=== PATIENT | male | born 1995 | race Caucasian/White ===

== ENCOUNTER 2018-11-14 21:19 | Emergency (ER) | payer OTHER, SELFPAY ==
[2018-11-14 21:22] VITALS: BP 118/64; PULSE 98; RESP 16; TEMP 36.7; O2SAT 98
--- NOTE | 2018-11-14 21:33 | W.ED.GENAD ---
Discharge Plan Disposition Patient Disposition: HOME Condition: Stable Discharge Details Chief Complaint: Fever Clinical Impression: Influenza Primary Care Provider: Mariam Clark ED Provider: Carlos Araujo Home Meds and New Rx's Prescriptions: New ondansetron 4 mg tablet,disintegrating 4 mg PO TID PRN (Reason: nausea and vomiting) 5 Days Qty: 30 RF: 0 Continued penicillin V potassium 500 mg tablet 500 mg PO BID 10 Days Qty: 20 RF: 0 oseltamivir [Tamiflu] 75 mg capsule 75 mg PO BID 5 Days Qty: 10 RF: 0 Excedrin Migraine 1 EACH tablet 1 ea PO PRN RF: 0 prochlorperazine maleate 10 MG tablet 10 mg PO Q8H PRN Qty: 30 RF: 3 sumatriptan succinate [Imitrex] 100 MG tablet 100 mg PO PRN Qty: 10 RF: 0 acetaminophen [Tylenol] 325 MG tablet 650 mg PO Q4H PRN PRNRF: 0 ibuprofen 600 MG tablet 600 mg PO Q6H PRN (Reason: Pain) Qty: 16 RF: 0 Discharge Instructions Instructions: Influenza (ED) Additional Instructions: you can take 1000mg tylenol and 600mg ibuprofen every 6 hours as needed if you feel you are becoming more ill, have worsening difficulty breathing or persistent vomit return to the emergency department for reevaluation if not better in a week see your primary care provider Medical Decision Making 23 yo male who denies chronic medical problems comes in with fevers to 104 at home, chills, and sore throat starting yesterday. Was tested positive by pcp for strep throat yesterday and started pcn. Today had chills and rigors and myalgias so they also started him on tamiflu. Denies any drug use, no travel, no vomit but has had nausea. He appears well systemically, midline uvula, no pain over hyoid and no findings to suggest rpa, scow captain, epiglotitis. Clear lungs withut hypoxia or tachycardia so doubt pna at this time, do not feel additional labs or imaging indicated. I advised continued supportive care, continue pcn and tamilfu and return precautions given. No murmurs or other stigmata of endocarditis. No meningismus or severe hedache to suggest manager msw infection Differential Diagnosis influenza, strep throat HPI General Mode of arrival: ambulatory. Date/Time Provider Initiated Documentation: 11/14/18 21:33. Limitations to Documentation: no limitations. Information obtained by: patient. History of Present Illness 23 year old M presents to the emergency department with the chief complaint of fever, described as moderate, Patient started experiencing this day(s) (1) and it has been constant. No relieving factors improve symptom(s), No exacerbating factors reported . Patient did receive the following treatments prior to arrival, none Related Data Home Medications Medication Instructions Recorded Confirmed Excedrin Migraine 1 ea PO PRN 04/25/17 11/14/18 prochlorperazine maleate 10 mg PO Q8H PRN #30 tab-cap 04/25/17 11/14/18 sumatriptan succinate [Imitrex] 100 mg PO PRN #10 tab-cap 04/25/17 11/14/18 acetaminophen [Tylenol] 650 mg PO Q4H PRN PRN tab 04/29/17 11/14/18 ibuprofen 600 mg PO Q6H PRN #16 tab 12/26/17 11/14/18 penicillin V potassium 500 mg 500 mg PO BID 10 Days #20 tab 11/13/18 11/14/18 tablet ondansetron 4 mg PO TID PRN 5 Days #30 tab 11/14/18 oseltamivir 75 mg capsule 75 mg PO BID 5 Days #10 cap 11/14/18 11/14/18 Previous Rx's Medication Instructions Recorded acetaminophen [Tylenol] 650 mg PO Q4H PRN PRN tab 04/29/17 ibuprofen 600 mg PO Q6H PRN #16 tab 12/26/17 penicillin V potassium 500 mg 500 mg PO BID 10 Days #20 tab 11/13/18 tablet ondansetron 4 mg PO TID PRN 5 Days #30 tab 11/14/18 oseltamivir 75 mg capsule 75 mg PO BID 5 Days #10 cap 11/14/18 Allergies Allergy/AdvReac Type Severity Reaction Status Date / Time No Known Allergies Allergy Verified 11/14/18 21:29 General Stated Complaint: Fever TOMASA: 3 Review of Systems Review of Systems All systems reviewed & are unremarkable except as noted in HPI and below Constitutional Denies chills ENT Denies change in voice Cardiovascular Denies chest pain Gastrointestinal Denies abdominal pain, Denies nausea and Denies vomiting Genitourinary Denies dysuria Musculoskeletal Denies joint swelling Integumentary/Breasts Denies rash Endocrine Denies heat intolerance PFSH Medical History GERD (gastroesophageal reflux disease) Migraines Viral meningitis (04/27/17) Surgical History Hernia repair Family History Mother Migraines Father Migraines Sister No problems noted. Brother No problems noted. Grandfather Diabetes Neoplasm Grandfather Diabetes Social History Smoking and Tabacco status: Never Exam Const General: no acute distress Orientation: alert HENMT Head: normal to inspection Ears: external ears normal General nose exam: external nose normal Mouth: moist mucous membranes Eyes General: appearance normal, both eyes and all related structures Neck Neck: normal visual inspection Resp Effort & Inspection: normal respiratory effort and able to speak in complete sentences Cardio Rate: regular rate Skin General skin exam: no rashes or lesions noted Neuro General: alert and oriented x3 Extrem General: normal to inspection Psych Mental Status: mental status grossly normal Course Vital Signs Temperature 36.7 C 11/14/18 21:22 Pulse 98 H 11/14/18 21:22 Respiratory Rate 16 11/14/18 21:22 Blood Pressure 118/64 11/14/18 21:22 Pulse Oximetry 98 11/14/18 21:22 Temperature 36.7 C 11/14/18 21:22 Temperature Source Skin 11/14/18 21:22 Pulse 98 H 11/14/18 21:22 Respiratory Rate 16 11/14/18 21:22 Respiratory Effort Non-Labored 11/14/18 21:30 Blood Pressure 118/64 11/14/18 21:22 Blood Pressure Position Sitting 11/14/18 21:22 Pulse Oximetry 98 11/14/18 21:22 Oxygen Delivery Method Room Air 11/14/18 21:22 Oxygen Flow Rate 0 11/14/18 21:22
[2018-11-14 21:34] VITALS: TEMP 37.8
--- NOTE | 2018-11-14 21:44 | ED.GENADUL_ITS ---
Discharge Plan Disposition Patient Disposition: HOME Condition: Stable Discharge Details Chief Complaint: Fever Clinical Impression: Influenza Primary Care Provider: Mariam Clark ED Provider: Carlos Araujo Home Meds and New Rx's Prescriptions: New ondansetron 4 mg tablet,disintegrating 4 mg PO TID PRN (Reason: nausea and vomiting) 5 Days Qty: 30 RF: 0 Continued penicillin V potassium 500 mg tablet 500 mg PO BID 10 Days Qty: 20 RF: 0 oseltamivir [Tamiflu] 75 mg capsule 75 mg PO BID 5 Days Qty: 10 RF: 0 Excedrin Migraine 1 EACH tablet 1 ea PO PRN RF: 0 prochlorperazine maleate 10 MG tablet 10 mg PO Q8H PRN Qty: 30 RF: 3 sumatriptan succinate [Imitrex] 100 MG tablet 100 mg PO PRN Qty: 10 RF: 0 acetaminophen [Tylenol] 325 MG tablet 650 mg PO Q4H PRN PRNRF: 0 ibuprofen 600 MG tablet 600 mg PO Q6H PRN (Reason: Pain) Qty: 16 RF: 0 Discharge Instructions Instructions: Influenza (ED) Additional Instructions: you can take 1000mg tylenol and 600mg ibuprofen every 6 hours as needed if you feel you are becoming more ill, have worsening difficulty breathing or pe rsistent vomit return to the emergency department for reevaluation if not better in a week see your primary care provider Medical Decision Making 23 yo male who denies chronic medical problems comes in with fevers to 104 at home, chills, and sore throat starting yesterday. Was tested positive by pcp for strep throat yesterday and started pcn. Today had chills and rigors and myalgias so they also started him on tamiflu. Denies any drug use, no travel, no vomit but has had nausea. He appears well systemically, midline uvula, no pain over hyoid and no findings to suggest rpa, bell captain, epiglotitis. Clear lungs withut hypoxia or tachycardia so doubt pna at this time, do not feel additional labs or imaging indicated. I advised continued supportive care, continue pcn and tamilfu and return precautions given. No murmurs or other stigmata of endocarditis. No meningismus or severe hedache to suggest collar tacker infection Differential Diagnosis influenza, strep throat HPI General Mode of arrival: ambulatory . Date/Time Provider Initiated Documentation: 11/14/18 21:33 . Limitations to Documentation: no limitations . Information obtained by: patient . History of Present Illness 23 year old M presents to the emergency department with the chief complaint of fever, described as moderate, Patient started experiencing this day(s) (1) and it has been constant. No relieving factors improve symptom(s), No exacerbating factors reported . Patient did receive the following treatments prior to arrival, none Related Data Home Medications Medication Instructions Recorded Confirmed Excedrin Migraine 1 ea PO PRN 04/25/17 11/14/18 prochlorperazine maleate 10 mg PO Q8H PRN #30 tab-cap 04/25/17 11/14/18 sumatriptan succinate [Imitrex] 100 mg PO PRN #10 tab-cap 04/25/17 11/14/18 acetaminophen [Tylenol] 650 mg PO Q4H PRN PRN tab 04/29/17 11/14/18 ibuprofen 600 mg PO Q6H PRN #16 tab 12/26/17 11/14/18 penicillin V potassium 500 mg 500 mg PO BID 10 Days #20 tab 11/13/18 11/14/18 tablet ondansetron 4 mg PO TID PRN 5 Days #30 tab 11/14/18 oseltamivir 75 mg capsule 75 mg PO BID 5 Days #10 cap 11/14/18 11/14/18 Previous Rx's Medication Instructions Recorded acetaminophen [Tylenol] 650 mg PO Q4H PRN PRN tab 04/29/17 ibuprofen 600 mg PO Q6H PRN #16 tab 12/26/17 penicillin V potassium 500 mg 500 mg PO BID 10 Days #20 tab 11/13/18 tablet ondansetron 4 mg PO TID PRN 5 Days #30 tab 11/14/18 oseltamivir 75 mg capsule 75 mg PO BID 5 Days #10 cap 11/14/18 Allergies Allergy/AdvReac Type Severity Reaction Status Date / Time No Known Allergies Allergy Verified 11/14/18 21:29 General Stated Complaint: Fever TOMASA: 3 Review of Systems Review of Systems All systems reviewed & are unremarkable except as noted in HPI and below Constitutional Denies chills ENT Denies change in voice Cardiovascular Denies chest pain Gastrointestinal Denies abdominal pain, Denies nausea and Denies vomiting Genitourinary Denies dysuria Musculoskeletal Denies joint swelling Integumentary/Breasts Denies rash Endocrine Denies heat intolerance PFSH Medical History GERD (gastroesophageal reflux disease) Migraines Viral meningitis (04/27/17) Surgical History Hernia repair Family History Mother Migraines Father Migraines Sister No problems noted. Brother No problems noted. Grandfather Diabetes Neoplasm Grandfather Diabetes Social History Smoking and Tabacco status: Never Exam Const General: no acute distress Orientation: alert HENMT Head: normal to inspection Ears: external ears normal General nose exam: external nose normal Mouth: moist mucous membranes Eyes General: appearance normal, both eyes and all related structures Neck Neck: normal visual inspection Resp Effort & Inspection: normal respiratory effort and able to speak in complete sentences Cardio Rate: regular rate Skin General skin exam: no rashes or lesions noted Neuro General: alert and oriented x3 Extrem General: normal to inspection Psych Mental Status: mental status grossly normal Course Vital Signs Temperature 36.7 C 11/14/18 21:22 Pulse 98 H 11/14/18 21:22 Respiratory Rate 16 11/14/18 21:22 Blood Pressure 118/64 11/14/18 21:22 Pulse Oximetry 98 11/14/18 21:22 Temperature 36.7 C 11/14/18 21:22 Temperature Source Skin 11/14/18 21:22 Pulse 98 H 11/14/18 21:22 Respiratory Rate 16 11/14/18 21:22 Respiratory Effort Non-Labored 11/14/18 21:30 Blood Pressure 118/64 11/14/18 21:22 Blood Pressure Position Sitting 11/14/18 21:22 Pulse Oximetry 98 11/14/18 21:22 Oxygen Delivery Method Room Air 11/14/18 21:22 Oxygen Flow Rate 0 11/14/18 21:22
[2018-11-14] MEDS: Ondansetron O.D.T. 4 MG TABEF PO (21:52)
== END 2018-11-14 22:00 | disposition home or self-care (01) ==
PROVIDERS: Emergency Provider Emergency Medicine; PCP Nurse Practitioner Family
DX: J10.89 Influenza due to other identified influenza virus with other manifestations (principal); J02.0 Streptococcal pharyngitis
CPT/HCPCS: 99283

== ENCOUNTER 2020-01-29 10:52 | Outpatient (CLI) | payer OTHER, SELFPAY ==
[2020-01-30 15:24] LABS: COVID-19 RT-PCR Result NEGATIVE (Negative)
== END 2020-01-29 11:12 ==
PROVIDERS: PCP Nurse Practitioner Family; Visit Provider Family Medicine
DX: R50.9 Fever, unspecified (principal)
CPT/HCPCS: U0003

== ENCOUNTER 2020-07-07 11:48 | Outpatient (CLI) | payer OTHER, SELFPAY ==
[2020-07-09 16:20] LABS: Patient Race White; SARS-CoV-2 RNA Undetected (Undetected); SARS-CoV-2 Specimen Source Nasal
== END 2020-07-07 12:08 ==
PROVIDERS: PCP Nurse Practitioner Family; Visit Provider Nurse Practitioner Family
DX: Z11.59 Encounter for screening for other viral diseases (principal)
CPT/HCPCS: U0003

== ENCOUNTER 2020-11-28 02:39 | Outpatient (CLI) | payer SELFPAY ==
[2020-11-29 14:22] LABS: COVID-19 RT-PCR UVMMC Result Negative (Negative)
== END 2020-11-28 02:40 | disposition home or self-care (01) ==
LOC: LBO 02:39
PROVIDERS: PCP Nurse Practitioner Family; Visit Provider Nurse Practitioner Family
DX: Z20.822 Contact with and (suspected) exposure to COVID-19 (principal)
CPT/HCPCS: U0003

== ENCOUNTER 2021-05-05 09:16 | Outpatient (CLI) | payer BC, SELFPAY ==
[2021-05-05 19:39] LABS: COVID-19 RT-PCR UVMMC Result Negative (Negative)
== END 2021-05-05 09:17 | disposition home or self-care (01) ==
LOC: LBO 09:18
PROVIDERS: PCP Nurse Practitioner Family; Visit Provider Nurse Practitioner Family
DX: Z20.822 Contact with and (suspected) exposure to COVID-19 (principal)
CPT/HCPCS: U0003

== ENCOUNTER 2022-04-05 09:25 | Outpatient (REF) | payer BC, SELFPAY ==
[2022-04-07 11:19] LABS: COVID-19 RT-PCR UVMMC Result Negative (Negative)
== END 2022-04-05 09:26 | disposition home or self-care (01) ==
LOC: LBN 09:25
PROVIDERS: PCP Nurse Practitioner Family; Referring Provider Nurse Practitioner; Visit Provider Nurse Practitioner
DX: Z86.16 Personal history of COVID-19 (principal)
CPT/HCPCS: U0003

== ENCOUNTER 2022-05-21 10:12 | Emergency (ER) | payer BC, SELFPAY ==
--- NOTE | 2022-05-21 10:15 | RT.EKG_ITS ---
APPROVED REPORT Exam: Resting ECG Reason for Exam: SOB Patient Location: E HR:59 bpm ECG Measurements Heart Rate 59 AXIS TN 167 P 55 QRSd 81 QRS -9 QT 378 T 15 QTc 375 Conclusion Sinus bradycardia...rate< 60
[2022-05-21 10:19] VITALS: BP 125/76; PULSE 87; RESP 18; TEMP 36.6; O2SAT 97
--- NOTE | 2022-05-21 11:15 | ED.GENADUL_ITS ---
Discharge Plan Disposition Patient Disposition: HOME Condition: Stable Discharge Details Clinical Impression: COVID-19 Primary Care Provider: Mariam Clark ED Provider: Moni Kelly Home Meds and New Rx's Prescriptions: New prednisone 20 mg tablet 60 mg PO DAILY 5 Days Qty: 15 0RF Continued Excedrin Migraine 1 EACH tablet 1 ea PO PRN sumatriptan succinate [Imitrex] 100 MG tablet 100 mg PO PRN Qty: 10 Rx Instructions: Take as needed for headaches. May repeat after 1-2 hours. No more than 2 doses in 24 hour. acetaminophen [Tylenol] 325 MG tablet 650 mg PO Q4H PRN PRN0RF ibuprofen 600 MG tablet 600 mg PO Q6H PRN (Reason: Pain) Qty: 16 0RF Discharge Instructions Instructions: COVID-19 (Coronavirus Disease 2019) (ED) Additional Instructions: At this time there is no evidence for pneumonia. Please take multivitamin [id number] vitamin C, zinc, vitamin C. Please take Tylenol or Ibuprofen with food every 4-6 hours as needed for pain and swelling. Use the albuterol inhaler 1 to 2 puffs every 4-6 hours as needed for shortness of breath and wheezing. Take the steroid, three tablets once daily x 5 days., Follow up with primary care provider in 3-5 days. Return to ED sooner if any worsening or concerns. Increase oral fluids. Stand Alone Forms: Work Release Referrals: Mariam Clark NP [Primary Care Provider] - 3 days Discharge Data Discharge Date/Time-TO BE ENTERED AT DEPARTURE: 05/21/22 12:52 Medical Decision Making 26-year-old male presents to the ER with a chief complaint of chest heaviness and shortness of breath after being diagnosed with COVID-positive approximately 5 days ago. Chest x-ray, D-dimer, troponin, procalcitonin ordered. Albuterol inhaler, dexamethasone. Patient does not qualify for treatment or monoclonal antibodies. Labs are largely within normal limits, patient discharged with albuterol inhaler instructed to take [id number]-bdv-[id number] multivitamin. Discussed follow-up care and strict return instructions and quarantine process. This text was generated using [email or web address][employer]tvation system, please disregard any oddities of phrase or misspellings. Medical Records Medical records reviewed: Yes I reviewed the patient's medical records. Lab Data Lab results reviewed: Yes I reviewed the patient's lab results. Labs: Laboratory Tests Range/Units 05/21/22 05/21/22 05/21/22 11:35 11:35 11:35 WBC (4.4-10.8) 10^3/uL 5.43 RBC (4.36-5.78) 10^6/uL 5.21 Hgb (13.5-17.5) g/dL 15.9 Hct (40.0-50.0) % 47.2 MCV (80-95) fL 91 MCH (27.0-33.0) pg 30.5 MCHC (32.0-36.0) % 33.7 RDW (11.8-14.1) % 11.3 L Plt Count (130-400) 10^3/uL 225 MPV (8.0-11.0) fL 10.3 Immature Gran % 0.2 Neutrophils % 53.6 Lymphocytes % 35.5 Monocytes % 9.6 Eosinophils % 0.7 Basophils % 0.4 Nucleated RBC % (0.0-0.3) % 0.0 Absolute Neutrophils (1.2-6.7) 10^3/uL 2.91 Absolute Lymphocytes (1.2-3.4) 10^3/uL 1.93 Absolute Monocytes (0.1-0.8) 10^3/uL 0.52 Absolute Eosinophils (0.0-0.7) 10^3/uL 0.04 Absolute Basophils (0.0-0.2) 10^3/uL 0.02 D-Dimer (<500) ng/mlFEU Sodium (136-145) mmol/L 139 Potassium (3.5-5.1) mmol/L 4.2 Chloride (98-107) mmol/L 102 Carbon Dioxide (21.0-32.0) mmol/L 32.0 Anion Gap (3-11) mmol/L 5.0 BUN (7-18) mg/dL 15 Creatinine (0.70-1.30) mg/dL 1.0 Est GFR (CKD-EPI 2020) (mL/min/1.73m2) 105.14 Glucose (74-106) mg/dL 93 Calcium (8.5-10.1) mg/dL 8.9 Total Bilirubin (0.2-1.0) mg/dL 0.4 AST (15-37) U/L 26 ALT (16-63) U/L 42 Alkaline Phosphatase (46-116) U/L 70 Troponin I (<or=60) ng/L < 50 Total Protein (6.4-8.2) g/dL 7.9 Albumin (3.4-5.0) g/dL 3.7 Procalcitonin ng/mL < 0.1 Range/Units 05/21/22 11:35 WBC (4.4-10.8) 10^3/uL RBC (4.36-5.78) 10^6/uL Hgb (13.5-17.5) g/dL Hct (40.0-50.0) % MCV (80-95) fL MCH (27.0-33.0) pg MCHC (32.0-36.0) % RDW (11.8-14.1) % Plt Count (130-400) 10^3/uL MPV (8.0-11.0) fL Immature Gran % Neutrophils % Lymphocytes % Monocytes % Eosinophils % Basophils % Nucleated RBC % (0.0-0.3) % Absolute Neutrophils (1.2-6.7) 10^3/uL Absolute Lymphocytes (1.2-3.4) 10^3/uL Absolute Monocytes (0.1-0.8) 10^3/uL Absolute Eosinophils (0.0-0.7) 10^3/uL Absolute Basophils (0.0-0.2) 10^3/uL D-Dimer (<500) ng/mlFEU 145 Sodium (136-145) mmol/L Potassium (3.5-5.1) mmol/L Chloride (98-107) mmol/L Carbon Dioxide (21.0-32.0) mmol/L Anion Gap (3-11) mmol/L BUN (7-18) mg/dL Creatinine (0.70-1.30) mg/dL Est GFR (CKD-EPI 2020) (mL/min/1.73m2) Glucose (74-106) mg/dL Calcium (8.5-10.1) mg/dL Total Bilirubin (0.2-1.0) mg/dL AST (15-37) U/L ALT (16-63) U/L Alkaline Phosphatase (46-116) U/L Troponin I (<or=60) ng/L Total Protein (6.4-8.2) g/dL Albumin (3.4-5.0) g/dL Procalcitonin ng/mL HPI General Mode of arrival: ambulatory . Date/Time Provider Initiated Documentation: 05/21/22 10:25 . Limitations to Documentation: no limitations . Information obtained by: patient, RN notes reviewed and old records reviewed . HPI Narrative: 26-year-old male presents to the ER with a chief complaint of chest heaviness and shortness of breath after being diagnosed with COVID-positive approximately 5 days ago. He denies any nausea vomiting diarrhea. He has not a smoker. He has been taking ibuprofen and dsru-ofi-[id number] decongestions with little to no relief. Related Data Home Medications Medication Instructions Recorded Confirmed [id number] 250 1 ea PO PRN 04/25/17 01/22/22 mg-250 mg-65 mg tablet (Excedrin Migraine) sumatriptan succinate 100 mg 100 mg PO PRN #10 tab-caps 04/25/17 01/22/22 tablet (Imitrex) acetaminophen 325 mg tablet 650 mg PO Q4H PRN PRN 04/29/17 05/21/22 (Tylenol) ibuprofen 600 mg tablet 600 mg PO Q6H PRN Pain #16 tabs 12/26/17 05/21/22 prednisone 20 mg tablet 60 mg PO DAILY 5 days #15 tabs 05/21/22 Previous Rx's Medication Instructions Recorded acetaminophen 325 mg tablet 650 mg PO Q4H PRN PRN 04/29/17 (Tylenol) ibuprofen 600 mg tablet 600 mg PO Q6H PRN Pain #16 tabs 12/26/17 prednisone 20 mg tablet 60 mg PO DAILY 5 days #15 tabs 05/21/22 Allergies Allergy/AdvReac Type Severity Reaction Status Date / Time No Known Allergies Allergy Verified 05/21/22 10:22 General Stated Complaint: RespSymp TOMASA: 3 Review of Systems All systems reviewed & are unremarkable except as noted in HPI and below Cardiovascular Cardiovascular: Reports dyspnea Respiratory Respiratory: Reports dyspnea Gastrointestinal Gastrointestinal: Denies diarrhea, Denies nausea and Denies vomiting PFSH All Active Problems (Updated 05/21/22 @ 12:38 by Moni Kelly NP) COVID-19 (Acute) COVID-19 virus RNA test result positive at limit of detection (Acute ~05/17/22) Low back pain (Chronic) Cyst of nasopharynx (Acute 01/05/18) Dysfunction of right eustachian tube (Acute 01/05/18) Migraine (Acute) Chronic constipation (Acute) Medical History Gastroesophageal reflux disease (Unknown) Managed with [facility] Migraines Viral meningitis (04/27/17) Hospitalized at [facility] 04/27-04/29/2017 Surgical History Hernia repair Family History Mother Migraines Father Migraines Grandfather Diabetes Colon cancer Colon CA dx'ed late 50s Grandfather Diabetes Cancer Skin Cancer Social History Smoking/Tobacco Use Status: Never Smoking risk assessment performed?: Yes Alcohol Intake: current Alcohol Intake frequency: holidays/special occasions only Drug use: Daily Substance use type: marijuana Adopted: No Caregiver/Support person: No Foster care: No Household members: spouse and children Housing: house Number of Children: 2 Education Level: vocational Do you need help understanding health information?: Rarely current occupation: Placement Manager Pets and animals: Yes Pets and animals: cat(s) and dog(s) Sexually active: Yes Do you think of yourself as: straight/heterosexual Current gender identity: male What is your relationship status?: How often do you talk on the phone with friends or family?: three or more times per week How often do you get together with friends or relatives?: three or more times per week Panel score (0-1 are the most socially isolated patients): 2 What type of physical activity do you participate in: other Details: Core exercise Duration: 15-30 minutes/day Frequency: 3-4 times per week Special angel needs: No Seatbelt use: always Helmet use: Yes Drive intox or ride w/intox fast food delivery driver: No Do you feel safe at home: Yes Do you feel safe in your relationship?: Yes Exam Narrative Exam Narrative: Constitutional: Alert and oriented x3. Appears stated age. Normal body habitus. Head: Normocephalic, no trauma. Eyes: Pupils PERRL, Red reflex noted, EOM's intact. Eyelids symmetrical without lesions, discharge, or swelling. ENT: Bilateral TM's WNL, External ear normal to inspection, no mastoid TTP, swelling, or erythema, Nasal turbinates WNL, no nasal discharge. Normal dentition, Posterior pharynx WNL, no exudate. Chest: RRR, Normal S1, S2, distal pulses intact. Resp: Lungs diminished bilaterally Abdomen: Soft, non-distended, Normoactive bowel sounds all 4 quads. Musculoskeletal: Normal gait, 5/5 strength to all four extremities. Skin: No suspicious rashes or lesions. Capillary refill less than 2 sec. Neurologic: Cranial nerves II-XII intact. Alert and oriented x 3. Motor: No de ficits noted. Sensory: Intact bilaterally all 4 extremities. Reflexes: DTR's intact bilaterally.. Hematologic/Lymphatic: No ecchymosis, no lymphadenopathy. Course Vital Signs Vital signs: Vital Signs Temperature 36.6 C 05/21/22 10:19 Pulse 87 05/21/22 10:19 Respiratory Rate 18 05/21/22 10:19 Blood Pressure 125/76 05/21/22 10:19 Pulse Oximetry 97 05/21/22 10:19 Temperature 36.6 C 05/21/22 10:19 Temperature Source Temporal Artery Scan 05/21/22 10:19 Pulse 87 05/21/22 10:19 Respiratory Rate 18 05/21/22 10:19 Respiratory Effort 05/21/22 10:23 Blood Pressure 125/76 05/21/22 10:19 Blood Pressure Position Sitting 05/21/22 10:19 Pulse Oximetry 97 05/21/22 10:19 Oxygen Delivery Method Room Air 05/21/22 10:19 Oxygen Flow Rate 0 05/21/22 10:19
--- NOTE | 2022-05-21 11:15 | DI.RAD_ITS ---
Exam(s) XR PORTABLE CHEST AP EXAM: XR PORTABLE CHEST AP CLINICAL HISTORY: SOB, PUI, Covid psitive TECHNIQUE: 2D digital imaging was performed of the chest. One image was obtained. An AP view was ob tained. COMPARISON: No exams were available for comparison FINDINGS: MEDIASTINUM: Normal. HEART: Normal. PULMONARY VASCULATURE: Normal. LUNGS: Clear. PLEURAL SPACE: No pleural effusion or pneumothorax. BONE:Within normal limits for the patient's age. OTHER FINDINGS:Normal. IMPRESSION: No acute pulmonary findings. DATA REPOSITORY: RADIATION DOSE DELIVERED:
[2022-05-21] MEDS: Dexamethasone 10 MG/ML VIAL PO (11:38)
[2022-05-21] MEDS: Normal Saline 1,000 ML 1000 ML IV (11:38)
[2022-05-21] MEDS: Albuterol HFA 8 GM 60 PUFF INH IH (11:38)
[2022-05-21 12:01] LABS: Abs Immature Grans 0.01 10^3/uL (0.0-0.06); Absolute Basophil Count 0.02 10^3/uL (0.0-0.2); Absolute Eosinophil Count 0.04 10^3/uL (0.0-0.7); Absolute Lymphocyte Count 1.93 10^3/uL (1.2-3.4); Absolute Monocyte Count 0.52 10^3/uL (0.1-0.8); Absolute Neutrophil Count 2.91 10^3/uL (1.2-6.7); Basophils % 0.4; Eosinophils % 0.7; HCT 47.2 % (40.0-50.0); HGB 15.9 g/dL (13.5-17.5); Immature Grans % 0.2; Lymphocytes % 35.5; MCH 30.5 pg (27.0-33.0); MCHC 33.7 % (32.0-36.0); MCV 91 fL (80-95); MPV 10.3 fL (8.0-11.0); Monocytes % 9.6; Neutrophils % 53.6; Platelet Count 225 10^3/uL (130-400); RBC 5.21 10^6/uL (4.36-5.78); RDW 11.3 % (11.8-14.1); RDW-SD 37.9 fL; WBC 5.43 10^3/uL (4.4-10.8)
[2022-05-21 12:20] LABS: ALT 42 U/L (16-63); AST 26 U/L (15-37); Albumin 3.7 g/dL (3.4-5.0); Alkaline Phosphatase 70 U/L (46-116); BUN 15 mg/dL (7-18); Bilirubin, Total 0.4 mg/dL (0.2-1.0); Calcium 8.9 mg/dL (8.5-10.1); Chloride 102 mmol/L (98-107); Estimated GFR 105.14 (mL/min/1.73m2); Glucose 93 mg/dL (74-106); Potassium 4.2 mmol/L (3.5-5.1); Sodium 139 mmol/L (136-145); Total Protein 7.9 g/dL (6.4-8.2); Troponin I < 50 ng/L (<or=60)
[2022-05-21 12:31] LABS: D-Dimer 145 ng/mlFEU (<500)
[2022-05-21 12:34] LABS: Procalcitonin < 0.1 ng/mL
== END 2022-05-21 12:52 | disposition home or self-care (01) ==
PROVIDERS: Emergency Provider Registered Nurse Emergency; PCP Nurse Practitioner Family
DX: U07.1 COVID-19 (principal)
CPT/HCPCS: 80053; 84145; 93005; 96360; 99284; 71045; 84484; 85025; 85379; 93010; 99285; J1100

== ENCOUNTER 2024-03-16 02:37 | Outpatient (CLI) | payer BC, SELFPAY ==
--- OUTSIDE RECORDS SUMMARY | 2024-03-16 02:39 | XMS_ITS | Continuity of Care Document ---
Author Name Unknown Organization [facility] Ambulatory Clinics Address [address] [place] [address] Encounter [facility] NBR [id number] Date(s): 02/13/23 - 02/13/23 [facility] Ambulatory Clinics [address] [place], [place] [address] Encounter Diagnosis Strep pharyngitis(Discharge Diagnosis) - 02/13/23 Discharge Disposition: Home or Self Care Attending Physician: Manisha JIMÉNEZ, Ivonne Allergies, Adverse Reactions, Alerts No Known Allergies Medications amoxicillin 500 mg oral capsule 500 mg = 1 cap, Oral, every 12 hr, # 20 cap, 0 Refill(s), Pharmacy: [phone] Start Date: 02/13/23 Stop Date: 02/23/23 Status: Ordered Results Laboratory List Name Date Rapid Strep POCT 02/13/23 Most recent to oldest [Reference Range]: 1 Rapid Strep POCT [Negative] Positive *ABN* (02/13/23 12:07 PM) Vital Signs Most recent to oldest [Reference Range]: 1 Temperature Tympanic [36.6-37.9 Deg C] 3 6.9 Deg C (02/13/23 12:08 PM) Peripheral Pulse Rate [60-100 bpm] 62 bp m (02/13/23 12:08 PM) Blood Pressure [90-140/60-90 mmHg] 118/7 2mmHg (02/13/23 12:08 PM) Weight 103.87 kg (02/13/23 12:08 PM) Weight Measured (lbs) 228.994 lb (02/13/23 12:08 PM) Hospital Discharge Instructions Patient Education 02/13/2023 11:10:27 Strep Throat, Adult Strep Throat, Adult Strep throat is an infection in the throat that is caused by bacteria. It is common during the coldmonths of the year. It mostly affects children who are 5???15 years old. However, people of all ages can get it at any time of the year. This infection spreads from person to person (is contagious) through coughing, sneezing, or having close contact. Your health care provider may use other names to describe the infection. It can be called tonsillitis (if there is swelling of the tonsils), or pharyngitis (if there is swelling at the back of the throat). What are the causes? This condition is caused by the Streptococcus pyogenes bacteria. What increases the risk? You are more likely to develop this condition if: ??? You care for school-age children, or are around school-age children. Children are more likely to get strep throat and may spread it to others. ??? You spend time in crowded places where the infection can spread easily. ??? You have close contact with someone who has strep throat. What are the signs or symptoms? Symptoms of this condition include: ??? Fever or chills. ??? Redness, swelling, or pain in the tonsils or throat. ??? Pain or difficulty when swallowing. ??? White or yellow spots on the tonsils or throat. ??? Tender glands in the neck and under the jaw. ??? Bad smelling breath. ??? Red rash all over the body. This is rare. How is this diagnosed? This condition is diagnosed by tests that check for the presence and the amount of bacteria that cause strep throat. They are: ??? Rapid strep test. Your throat is swabbed and checked for the presence of bacteria. Results are usually ready in minutes. ??? Throat culture test. Your throat is swabbed. The sample is placed in a cup that allows infections to grow. Results are usually ready in 1 or 2 days. How is this treated? This condition may be treated with: ??? Medicines that kill germs (antibiotics). ??? Medicines that relieve pain or fever. These include: ??? Ibuprofen or acetaminophen. ??? Aspirin, only for patients who are over the age of 18. ??? Throat lozenges. ??? Throat sprays. Follow these instructions at home: Medicines ??? Take mepr-zms-slmgcay and prescription medicines only as told by your health care provider. ??? Take your antibiotic medicine as told by your health care provider. Do not stop taking the antibiotic even if you start to feel better. Eating and drinking ??? If you have trouble swallowing, try eating soft foods until your sore throat feels better. ??? Drink enough fluid to keep your urine pale yellow. ??? To help relieve pain, you may have: ??? Warm fluids, such as soup and tea. ??? Cold fluids, such as frozen desserts or popsicles. General instructions ??? Gargle with a salt-water mixture 3???4 times a day or as needed. To make a salt-water mixture, completely dissolve ?1 tsp (3???6 g) of salt in 1 cup (237 mL) of warm water. ??? Get plenty of rest. ??? Stay home from work or school until you have been taking antibiotics for 24 hours. ??? Avoid smoking or being around people who smoke. ??? Keep all follow-up visits as told by your health care provider. This is important. How is this prevented? Do not share food, drinking cups, or personal items that could cause the infection to spread toother people. ??? Wash your hands well with soap and water, and make sure that all people in your house wash their hands well. ??? Have family members tested if they have a sore throat or fever. They may need an antibiotic if they have strep throat. Contact a health care provider if: ??? The glands in your neck continue to get bigger. ??? You develop a rash, cough, or earache. ??? You cough up a thick mucus that is green, yellow-brown, or bloody. ??? You have pain or discomfort that does not get better with medicine. ??? Your symptoms seem to be getting worse and not better. ??? You have a fever. Get help right away if: ??? You have new symptoms, such as vomiting, severe headache, stiff or painful neck, chest pain, orshortness of breath. ??? You have severe throat pain, drooling, or changes in your voice. ??? You have swelling of the neck, or the skin on the neck becomes red and tender. ??? You have signs of dehydration, such as tiredness (fatigue), dry mouth, and decreased urination. ??? You become increasingly sleepy, or you cannot wake up completely. ??? Your joints become red or painful. Summary ??? Strep throat is an infection in the throat that is caused by the Streptococcus pyogenes bacteria. This infection is spread from person to person (is contagious) through coughing, sneezing, or having close contact. ??? Take your medicines, including antibiotics, as told by your health care provider. Do not stop taking the antibiotic even if you start to feel better. ??? To prevent the spread of germs, wash your hands well with soap and water. Have others do the same. Do not share food, drinking cups, or personal items. ??? Get help right away if you have new symptoms, such as vomiting, severe headache, stiff or painful neck, chest pain, or shortness of breath. This information is not intended to replace advice given to you by your health care provider. Make sure you discuss any questions you have with your health care provider. Document Revised: 11/16/2019 Document Reviewed: 11/16/2019 [employer] Patient Education ?? 2021 [employer]. Physician Outpatient Note * Ivonne Dyer PA-C: PERFORM Event Display: Office Clinic Note Physician Authored Date: [id number] DEVEN LOMAX :1995 Age:27 years Sex:Male Visit Date:02/13/[address] History of Present Illness Patient is a 27-year-old male who presents to the??urgent care office today with less than 24-hour history of sore throat and painful swallowing. ??He has not had a fever, chills, cough, ear pain, neck pain, nausea vomiting or diarrhea.?? Also his children tested positive for strep this morning.?? Up-to-date with his vaccinations. ??No recent travel. ??He has not taken anything pvnv-wgo-ozajxhd for symptom management. Physical Exam Vitals & Measurements T:??36.9?C ??(Tympanic)?? HR:??62??(Peripheral)?? BP:??118/72?? SpO2:??100%?? WT:??103.87??kg?? He is well-appearing, no acute distress, accompanied by his and 2 children. No rash. Conjunctiva are clear. Both TMs are normal pearly abrams. Posterior pharynx??is injected. ??Tonsils are erythematous, no exudate. ??No??bulging of the soft palate. No cervical lymphadenopathy. ??Lung sounds are clear in all lobes. Medical Decision Making: Sore throat: 27-year-old male with less than 24 hours of sore throat. ??Rapid strep positive.?? He will start amoxicillin twice daily for the next 10 days. ??Alternate Motrin and Tylenol for pain. ??Return precautions provided. Assessment/Plan 1.??Strep pharyngitis??J02.0 Ordered: amoxicillin 500 mg oral capsule, 500 mg = 1 cap, Oral, every 12 hr, # 20 cap, 0 Refill(s), Pharmacy: [phone] ?? Patient Education Strep Throat, Adult Problem List/Past Medical History Ongoing No qualifying data Historical No qualifying data Medications amoxicillin 500 mg oral capsule, 500 mg= 1 cap, Oral, every 12 hr Allergies No Known Allergies Lab Results Test Name Test Result Date/Time Rapid Strep POCT Positive 02/13/2023 12:07 EDT Electronically Signed on 02/13/23 12:20 PM Ivonne Dyer PA-C Outpatient Summary note * Ivonne Dyer PA-C: PERFORM Event Display: Ambulatory Patient Summary Authored Date: [id number] DEVEN LOMAX :1995 Age:27 years Sex:Male Visit Date:02/13/2023 Ambulatory Visit Instructions We would like to thank you for allowing us to assist you with your healthcare needs. The following includes patient education materials and information regarding your injury/illness. Medications What How Much When Why Instructions New amoxicillin (amoxicillin 500 mg oral capsule) 1 Capsules Oral (given by mouth) Every 12 hours Strep pharyngitis Duration: 10 Days Pickup at [phone] Pharmacy Information [facility]: [address] [place] [phone] Your Summary Your Diagnosis Strep pharyngitis Outstanding Tests Rapid Strep POCT Tests Performed Test Name Test Result Date/Time Rapid Strep POCT Positive 02/13/2023 12:07 EDT Your Care Team Attending Physician - Manisha JIMÉNEZ, Ivonne Discharge Vitals Temperature??(Tympanic) 98.4 ??F (36.9 ??C) Heart Rate??(Peripheral) 62 Blood Pressure?? 118/72?? Weight?? 229.03 lb (103.87 kg) Allergies No Known Allergies Education Materials Strep Throat, Adult Strep throat is an infection in the throat that is caused by bacteria. It is common during the coldmonths of the year. It mostly affects children who are 5???15 years old. However, people of all ages can get it at any time of the year. This infection spreads from person to person (is contagious) through coughing, sneezing, or having close contact. Your health care provider may use other names to describe the infection. It can be called tonsillitis (if there is swelling of the tonsils), or pharyngitis (if there is swelling at the back of the throat). What are the causes? This condition is caused by the Streptococcus pyogenes bacteria. What increases the risk? You are more likely to develop this condition if: ? You care for school-age children, or are around school-age children. Children are more likely to get strep throat and may spread it to others. ? You spend time in crowded places where the infection can spread easily. ? You have close contact with someone who has strep throat. What are the signs or symptoms? Symptoms of this condition include: ? Fever or chills. ? Redness, swelling, or pain in the tonsils or throat. ? Pain or difficulty when swallowing. ? White or yellow spots on the tonsils or throat. ? Tender glands in the neck and under the jaw. ? Bad smelling breath. ? Red rash all over the body. This is rare. How is this diagnosed? This condition is diagnosed by tests that check for the presence and the amount of bacteria that cause strep throat. They are: ? Rapid strep test. Your throat is swabbed and checked for the presence of bacteria. Results are usually ready in minutes. ? Throat culture test. Your throat is swabbed. The sample is placed in a cup that allows infections to grow. Results are usually ready in 1 or 2 days. How is this treated? This condition may be treated with: ? Medicines that kill germs (antibiotics). ? Medicines that relieve pain or fever. These include: ? Ibuprofen or acetaminophen. ? Aspirin, only for patients who are over the age of 18. ? Throat lozenges. ? Throat sprays. Follow these instructions at home: Medicines ? Take qmhy-aet-johpgfz and prescription medicines only as told by your health care provider. ? Take your antibiotic medicine as told by your health care provider. Do not stop taking the antibiotic even if you start to feel better. Eating and drinking ? If you have trouble swallowing, try eating soft foods until your sore throat feels better. ? Drink enough fluid to keep your urine pale yellow. ? To help relieve pain, you may have: ? Warm fluids, such as soup and tea. ? Cold fluids, such as frozen desserts or popsicles. General instructions ? Gargle with a salt-water mixture 3???4 times a day or as needed. To make a salt- water mixture, completely dissolve ?1 tsp (3???6 g) of salt in 1 cup (237 mL) of warm water. ? Get plenty of rest. ? Stay home from work or school until you have been taking antibiotics for 24 hours. ? Avoid smoking or being around people who smoke. ? Keep all follow-up visits as told by your health care provider. This is important. How is this prevented? Do not share food, drinking cups, or personal items that could cause the infection to spread to other people. ? Wash your hands well with soap and water, and make sure that all people in your house wash their hands well. ? Have family members tested if they have a sore throat or fever. They may need an antibiotic if theyhave strep throat. Contact a health care provider if: ? The glands in your neck continue to get bigger. ? You develop a rash, cough, or earache. ? You cough up a thick mucus that is green, yellow-brown, or bloody. ? You have pain or discomfort that does not get better with medicine. ? Your symptoms seem to be getting worse and not better. ? You have a fever. Get help right away if: ? You have new symptoms, such as vomiting, severe headache, stiff or painful neck, chest pain, or shortness of breath. ? You have severe throat pain, drooling, or changes in your voice. ? You have swelling of the neck, or the skin on the neck becomes red and tender. ? You have signs of dehydration, such as tiredness (fatigue), dry mouth, and decreased urination. ? You become increasingly sleepy, or you cannot wake up completely. ? Your joints become red or painful. Summary ? Strep throat is an infection in the throat that is caused by the Streptococcus pyogenes bacteria. This infection is spread from person to person (is contagious) through coughing, sneezing, or having close contact. ? Take your medicines, including antibiotics, as told by your health care provider. Do not stop taking the antibiotic even if you start to feel better. ? To prevent the spread of germs, wash your hands well with soap and water. Have others do the same. Do not share food, drinking cups, or personal items. ? Get help right away if you have new symptoms, such as vomiting, severe headache, stiff or painful neck, chest pain, or shortness of breath. This information is not intended to replace advice given to you by your health care provider. Make sure you discuss any questions you have with your health care provider. Document Revised: 11/16/2019 Document Reviewed: 11/16/2019 [employer] Patient Education ?? 2021 [employer] Electronically Signed on: 02/13/2023 12:10 EDTSigned by: Patient Care team information Care Team Related Persons Name: RASHMI LOMAX Address: [address] [id number] [facility] Name: JACEY LOMAX Name: PRAMOD LOMAX
[2024-03-16 07:44] LABS: ESR 1 mm/hr (0-15)
[2024-03-16 08:29] LABS: ALT 34 U/L (16-63); AST 18 U/L (15-37); Albumin 3.7 g/dL (3.4-5.0); Alkaline Phosphatase 84 U/L (46-116); Bilirubin, Direct 0.1 mg/dL (0.0-0.2); Bilirubin, Total 0.44 mg/dL (0.2-1.0); Total Protein 7.1 g/dL (6.4-8.2)
[2024-03-16 08:35] LABS: C-Reactive Protein < 0.50 mg/dL (<or=0.5)
[2024-03-16 08:47] LABS: Calculated LDL 130 mg/dL (<100); Cholesterol 209 mg/dL (<200); HDL Cholesterol 59 mg/dL (40-60); Triglyceride 100 mg/dL (<150)
[2024-03-16 17:52] LABS: Rheumatoid Factor <8.6 IU/mL (<12.0)
[2024-03-16 19:23] LABS: HIV-1/2 Ag & Ab Screen Negative (Negative)
[2024-03-19 08:56] LABS: Cyclic Citrullinated Peptide <2.5 U/mL (<5.0)
[2024-03-19 09:43] LABS: Hepatitis C Ab w Rflx HCV PCR Negative (Negative)
[2024-03-19 15:42] LABS: ANA Interpretation Negative (Negative)
== END 2024-03-16 02:38 | disposition home or self-care (01) ==
LOC: LBO 02:37
PROVIDERS: PCP Nurse Practitioner Family; Visit Provider Family Medicine
DX: Z11.3 Encounter for screening for infections with a predominantly sexual mode of transmission (principal); M62.89 Other specified disorders of muscle; Z13.6 Encounter for screening for cardiovascular disorders
CPT/HCPCS: 36415; 80061; 80076; 85652; 86200; 86803; 87389; 86038; 86140; 86431

== ENCOUNTER 2024-07-17 15:02 | Emergency (ER) | payer BC, SELFPAY ==
[2024-07-17 15:03] VITALS: BP 127/89; PULSE 94; RESP 12; TEMP 37.2; O2SAT 97
--- NOTE | 2024-07-17 15:30 | DI.RAD_ITS ---
Exam(s) XR CHEST 2V PA LATERAL EXAM: XR CHEST 2V PA LATERAL CLINICAL HISTORY: fever TECHNIQUE: 2D digital imaging was performed. Two views. COMPARISON: CR LEFT RIBS TO INCLUDE CXR from 03/28/2008 CR XR PORTABLE CHEST AP from 05/21/2022 FINDINGS: Exam is limited by overlying monitoring leads. HEART: Normal size. Aorta: Not dilated. PULMONARY VASCULATURE: Normal. MEDIASTINUM: Unremarkable. LUNGS: Streaky infiltrate in the right upper lobe. Question of additional infiltrate right middle or lower lobe. The left lung appears clear. PLEURAL SPACE: No pleural effusion or pneumothorax. BONE:Unremarkable for age. SOFT TISSUES: Unremarkable. IMPRESSION: Right upper lobe pneumonia. Question of additional infiltrate in right middle lobe versus right lowe r lobe. DATA REPOSITORY: RADIATION DOSE DELIVERED:
[2024-07-17 15:47] LABS: Abs Immature Grans 0.01 10^3/uL (0.0-0.06); Absolute Basophil Count 0.03 10^3/uL (0.0-0.2); Absolute Eosinophil Count 0.03 10^3/uL (0.0-0.7); Absolute Lymphocyte Count 1.06 10^3/uL (1.2-3.4); Absolute Monocyte Count 0.67 10^3/uL (0.1-0.8); Absolute Neutrophil Count 6.68 10^3/uL (1.2-6.7); Basophils % 0.4 %; Eosinophils % 0.4 %; HCT 44.1 % (40.0-50.0); HGB 15.3 g/dL (13.5-17.5); Immature Grans % 0.1 %; Lymphocytes % 12.5 %; MCH 30.6 pg (27.0-33.0); MCHC 34.7 % (32.0-36.0); MCV 88 fL (80-95); Monocytes % 7.9 %; Neutrophils % 78.7 %; Platelet Count 219 10^3/uL (130-400); RDW 11.5 % (11.8-14.1); RDW-SD 37.1 fL; WBC 8.48 10^3/uL (4.4-10.8)
[2024-07-17] MEDS: Dexamethasone 10 MG/ML VIAL IVP (15:48)
[2024-07-17] MEDS: MAGNESIUM SULFATE 2 GM/50 ML BAG IVINF (15:48)
[2024-07-17] MEDS: ACETAMINOPHEN 1,000 MG/100 ML BAG 400 MG IVPB (15:48)
[2024-07-17 15:51] LABS: ESR 28 mm/hr (0-15)
[2024-07-17 16:12] LABS: ALT 34 U/L (16-63); AST 23 U/L (15-37); Albumin 3.5 g/dL (3.4-5.0); Alkaline Phosphatase 78 U/L (46-116); Anion Gap 7.3 mmol/L (3-11); BUN 11 mg/dL (7-18); Bilirubin, Total 0.41 mg/dL (0.2-1.0); C-Reactive Protein 8.77 mg/dL (<or=0.5); CO2 27.7 mmol/L (21.0-32.0); Chloride 104 mmol/L (98-107); Estimated GFR 103.84 (mL/min/1.73m2); Glucose 127 mg/dL (74-106); Potassium 3.8 mmol/L (3.5-5.1); Sodium 139 mmol/L (136-145); Total Protein 7.9 g/dL (6.4-8.2)
--- NOTE | 2024-07-17 16:22 | W.ED.GENAD ---
Discharge Plan Disposition Patient Disposition: Home Discharge Details Clinical Impression: Pneumonia, Fever Primary Care Provider: Mariam Clark ED Provider: Eneida Pineda Home Meds and New Rx's Prescriptions: New azithromycin 250 mg tablet 250 mg PO DAILY 4 Days Qty: 4 0RF Rx Instructions: start on day 2 of therapy No Action omeprazole 20 mg capsule,delayed release(DR/EC) 20 mg PO DAILY PRN (Reason: GERD) Qty: 90 3RF acetaminophen [Tylenol] 325 MG tablet 650 mg PO Q4H PRN PRN0RF ibuprofen 600 MG tablet 600 mg PO Q6H PRN (Reason: Pain) Qty: 16 0RF Discharge Instructions Instructions: Community-Acquired Pneumonia, Adult (DC) Additional Instructions: Your evaluated today for fever, body aches and a headache. Your workup was consistent with pneumonia You were given medication to treat your headache You were given your first dose of IV antibiotics to treat your pneumonia and the rest of the antibiotic has been sent to the pharmacy It is unlikely for you to have meningitis and pneumonia, your symptoms should all start to improve after 24 hours on the medication. Please make sure to drink lots of water, take Motrin and Tylenol as needed. Complete the entire course of the antibiotic prescription. Return to the emergency department if you have worsening of symptoms, severe headache, persistent vomiting, not tolerating the medication. Otherwise follow-up with your PCP as needed HPI General Date/Time Provider Initiated Documentation: 07/17/24 15:05. Limitations to Documentation: no limitations. Information obtained by: patient. HPI Narrative: 28-year-old gentleman with past medical history of migraines presents for evaluation of headache and fever. Symptoms started 2 days ago. He states that he initially started having headache consistent with prior migraine. Took medication and went away. He reports that then symptoms returned and he had bodyaches neck stiffness and fever. He reports that if he takes Motrin and Tylenol together every 6 hours he has resolution of the symptoms, but after the 6 hours, the symptoms returned. He reports some nausea without vomiting. He does report a nonproductive cough. No sore throat or runny nose. Reports that he has some mild increase in symptoms associated with a light, he reports that his dog was recently diagnosed this week with Lyme disease. He reports that his last dose of medication was 830 this morning Related Data Home Medications ?Medication ?Instructions ?Recorded ?Confirmed acetaminophen 325 mg tablet 650 mg (2 x 325 mg) PO Q4H PRN PRN 04/29/17 07/17/24 (Tylenol) ibuprofen 600 mg tablet 600 mg PO Q6H PRN Pain #16 tabs 12/26/17 07/17/24 omeprazole 20 mg capsule,delayed 20 mg PO DAILY PRN GERD #90 caps 01/09/24 07/17/24 release azithromycin 250 mg tablet 250 mg PO DAILY 4 days #4 tabs 07/17/24 Previous Rx's ?Medication ?Instructions ?Recorded acetaminophen 325 mg tablet 650 mg (2 x 325 mg) PO Q4H PRN PRN 04/29/17 (Tylenol) ibuprofen 600 mg tablet 600 mg PO Q6H PRN Pain #16 tabs 12/26/17 omeprazole 20 mg capsule,delayed 20 mg PO DAILY PRN GERD #90 caps 01/09/24 release azithromycin 250 mg tablet 250 mg PO DAILY 4 days #4 tabs 07/17/24 Allergies Allergy/AdvReac Type Severity Reaction Status Date / Time No Known Allergies Allergy Verified 07/17/24 15:08 General Stated Complaint: [facility] TOMASA: 2 Exam Narrative Exam Narrative: Review of Systems: All systems reviewed & are unremarkable except as noted in HPI and below Well-developed, no acute distress afebrile NCAT PERRL, normal conjunctiva - kernig, - brudzinski, some discomfort with lateral rotation of neck RRR Unlabored respiratory effort, CTAB Nondistended abdomen , soft non tender Extremities w/o deformity, no cyanosis, no edema No rashes or lesions. no focal neurologic deficits Course Vital Signs Vital signs: Vital Signs Temperature 37.2 C 07/17/24 15:03 Pulse 94 H 07/17/24 15:03 Respiratory Rate 12 07/17/24 15:03 Blood Pressure 127/89 07/17/24 15:03 Pulse Oximetry 97 07/17/24 15:03 Temperature 37.2 C 07/17/24 15:03 Temperature Source Oral 07/17/24 15:03 Pulse 94 H 07/17/24 15:03 Respiratory Rate 12 07/17/24 15:03 Respiratory Effort Normal, Non-Labored 07/17/24 15:09 Blood Pressure 127/89 07/17/24 15:03 Blood Pressure Position Sitting 07/17/24 15:03 Pulse Oximetry 97 07/17/24 15:03 Oxygen Delivery Method Room Air 07/17/24 15:03 Oxygen Flow Rate 0 07/17/24 15:03 Pain Level 7 07/17/24 15:03 Lab/Test Results Lab/Test Results: 07/17/24 16:05 Blood Blood Culture - Pending 07/17/24 15:30 Blood Blood Culture - Pending Laboratory Tests Range/Units 07/17/24 15:30 WBC (4.4-10.8) 10^3/uL 8.48 RBC (4.36-5.78) 10^6/uL 5.00 Hgb (13.5-17.5) g/dL 15.3 Hct (40.0-50.0) % 44.1 MCV (80-95) fL 88 MCH (27.0-33.0) pg 30.6 MCHC (32.0-36.0) % 34.7 RDW (11.8-14.1) % 11.5 L Plt Count (130-400) 10^3/uL 219 MPV (8.0-11.0) fL 10.0 Immature Gran % % 0.1 Neutrophils % % 78.7 Lymphocytes % % 12.5 Monocytes % % 7.9 Eosinophils % % 0.4 Basophils % % 0.4 Nucleated RBC % (0.0-0.3) % 0.0 Absolute Neutrophils (1.2-6.7) 10^3/uL 6.68 Absolute Lymphocytes (1.2-3.4) 10^3/uL 1.06 L Absolute Monocytes (0.1-0.8) 10^3/uL 0.67 Absolute Eosinophils (0.0-0.7) 10^3/uL 0.03 Absolute Basophils (0.0-0.2) 10^3/uL 0.03 ESR (0-15) mm/hr 28 H Sodium (136-145) mmol/L 139 Potassium (3.5-5.1) mmol/L 3.8 Chloride (98-107) mmol/L 104 Carbon Dioxide (21.0-32.0) mmol/L 27.7 Anion Gap (3-11) mmol/L 7.3 BUN (7-18) mg/dL 11 Creatinine (0.70-1.30) mg/dL 1.0 Est GFR (CKD-EPI 2020) (mL/min/1.73m2) 103.84 Glucose (74-106) mg/dL 127 H Calcium (8.5-10.1) mg/dL 9.0 Total Bilirubin (0.2-1.0) mg/dL 0.41 AST (15-37) U/L 23 ALT (16-63) U/L 34 Alkaline Phosphatase (46-116) U/L 78 C-Reactive Protein (<or=0.5) mg/dL 8.77 H Total Protein (6.4-8.2) g/dL 7.9 Albumin (3.4-5.0) g/dL 3.5 Medical Decision Making Emergent evaluation of headache and fever. Patient referred to the emergency department from PCP. He does have a history of aseptic meningitis and does have a dog at home with Lyme disease. The patient is afebrile at this time. His last antipyretic was at 830 this morning. He does not have any focal neurodeficits and does not have any coleman meningeal signs. He does report a history of aseptic meningitis. Viral testing obtained in clinic today was negative. Plan for blood work, cultures, inflammatory markers will send tick panel. Will give x-ray urinalysis and CT scan of the head to evaluate sources of potential infection. Lab work reviewed. Lab work reviewed. There is no leukocytosis or anemia. Lab work reviewed, there is no leukocytosis or anemia. There is a slight elevation in ESR and CRP. There is no electrolyte derangement. Procalcitonin is not elevated. Urinalysis is not infected. Viral testing is negative. Lyme and tick panel has been sent. Chest x-ray was obtained. Reviewed and independently interpreted: There is a right upper lobe infiltrate noted. This is confirmed by radiology report. His head CT does not demonstrate any acute abnormality. I reexamined the patient and he does not have any meningeal signs, his symptoms have improved. We discussed the findings of a pneumonia on x-ray. He has been having a cough during the last 2 days as well. I feel that this explains his symptoms of fever and bodyaches. As he does not have significant meningeal signs. Patient agrees and we will not proceed with lumbar puncture. He will be treated for community-acquired pneumonia with Rocephin and azithromycin. Additional dates of azithromycin will be sent to the pharmacy. He does understand to return if he is not tolerating his medication his fevers persist or worsen, his headache persist or worsens or he has any other concerns. Quality:[facility] Health Related Social Needs: No Data to Display [employer] All Active Problems (Updated 07/17/24 @ 17:23 by Eneida Pineda MD) Pneumonia (Acute) Neck stiffness (Acute) Fever (Acute) Headache (Acute) Muscle stiffness (Acute) Encounter for screening examination for sexually transmitted disease (Acute) Atypical nevus of scalp (Acute) Low back pain (Chronic) Cyst of nasopharynx (Acute 01/05/18) Migraine (Acute) Medical History Gastroesophageal reflux disease (Unknown) Managed with [facility] Viral meningitis (04/27/17) Hospitalized at [facility] 04/27-04/29/2017 Migraines Surgical History Hernia repair Family History Mother Migraines Father Migraines Grandfather Diabetes Colon cancer Colon CA dx'ed late 50s Grandfather Diabetes Cancer Skin Cancer Social History Smoking/Tobacco Use Status: Current-Occasional Tobacco: How many years used: 12 Second Hand Exposure: No Smoking risk assessment performed?: Yes Alcohol Intake: current Alcohol Intake frequency: holidays/special occasions only Drug use: Daily Substance use type: marijuana Adopted: No Caregiver/Support person: No Foster care: No Household members: spouse and children Housing: house Number of Children: 2 number of grandchildren: 0 Communication Needs: None Education Level: high school Do you need help understanding health information?: Often current occupation: Partnership Marketing Manager Pets and animals: Yes (1 cat; 2 dogs) Pets and animals: cat(s) and dog(s) Sexually active: Yes Do you think of yourself as: straight/heterosexual Current gender identity: male What is your relationship status?: How often do you talk on the phone with friends or family?: three or more times per week How often do you get together with friends or relatives?: three or more times per week Panel score (0-1 are the most socially isolated patients): 2 What type of physical activity do you participate in: walking and other Details: Physical activity Duration: 60-90 minutes/day Frequency: daily Heidi/Judaism: Rastafarian Special heidi needs: No Seatbelt use: always Helmet use: Yes Helmet use: sometimes Drive intox or ride w/intox screw driver operator: No Do you feel safe at home: Yes Do you feel safe in your relationship?: Yes PAWSS Have you Been Recently Intoxicated or Drunk Within the Last 30 days?: No Have you Ever Experienced Previous Episodes of Alcohol Withdrawal?: No Have you ever Experienced Withdrawal Seizures?: No Have you ever Experienced Delirium Tremens(DT)s?: No Have you ever undergone Alcohol Rehabilitation Treatment (i.e, inpt ot outpatient treatment programs)?: No Have you ever Experienced Blackouts?: No Have you ever Combined Alcohol with other Downers within the last 90 days?: No Have you ever Combined Alcohol with any other Substance of Abuse during the last 90 days?: No Positive Blood Alcohol level on Presentation? [PCS.BAL]: No Evidence of Increased Autonomic Activity (i.e. HR>120, tremor, sweating, agitation, nausea)?: No Result: 0
[2024-07-17 16:40] LABS: Procalcitonin 0.1 ng/mL
[2024-07-17 16:56] LABS: COVID-19 PCR Negative (Negative); Influenza A PCR Negative (Negative); Influenza B PCR Negative (Negative); RSV PCR Negative (Negative)
--- NOTE | 2024-07-17 17:02 | DI.CT_ITS ---
Exam(s) CT HEAD WO EXAM: CT HEAD WO CLINICAL HISTORY: fever. TECHNIQUE: Imaging Protocol: Axial computed tomography images with coronal and sagittal reformatted images were created and reviewed COMPARISON: CT HEAD WITHOUT CONTRAST from 04/25/2017 FINDINGS: Ventricles and Extra axial spaces: Normal in size and morphology for the patient's age. Hemorrhage: None. Cerebral parenchyma: No evidence of acute infarct or mass. Midline shift: None. Brainstem/Cerebellum: Normal. Calvarium: Normal. Visualized Paranasal sinuses:Clear. Mastoids: Clear. Soft Tissues: Unremarkable. ORBITS: Unremarkable. PITUITARY: Not enlarged. IMPRESSION: No acute intracranial process. RADIATION DOSE DELIVERED: Total DLP DATA REPOSITORY: All CT scans at this facility are submitted to the National Radiology Data Registry (NRDR) Dose Index Registry (DIR) with the [employer] (ACR). RADIATION OPTIMIZATION: All CT scans at this facility use at least one of these dose optimization te chniques: automated exposure control; mA and/or kV adjustment per patient size (includes targeted exa ms where dose is matched to clinical indication); or iterative reconstruction.
[2024-07-17 17:26] LABS: Source Nasopharynx
[2024-07-17] MEDS: cefTRIAXone 1 GM/50 ML BAG IVPB (17:37)
[2024-07-17] MEDS: AZITHROMYCIN 500 MG in DEXTROSE 5%-WATER 250 ML 250 MG IVPB (18:16)
[2024-07-17 18:33] LABS: Bilirubin Negative (Negative); Blood Negative (Negative); Clarity Clear (Clear); Glucose Negative (Negative); Ketones Negative (Negative); Leukocyte Esterase Negative (Negative); Nitrite Negative (Negative); Specific Gravity 1.015 (1.005-1.025)
[2024-07-17 19:57] VITALS: BP 123/64; PULSE 72; RESP 16; TEMP 35.8; O2SAT 99
[2024-07-19 12:44] LABS: Lyme Ab w Rflx to Lyme Confirm Negative (Negative)
[2024-07-21 16:15] LABS: Anaplasma phagocytophilum Negative (Negative); B. miyamotoi PCR Negative (Negative); Babesia divergens/MO-1 Negative (Negative); Babesia duncani Negative (Negative); Babesia microti Negative (Negative); Ehrlichia chaffeensis Negative (Negative); Ehrlichia ewingii/canis Negative (Negative); Ehrlichia muris eauclairensis Negative (Negative)
== END 2024-07-17 19:57 | disposition home or self-care (01) ==
PROVIDERS: Emergency Provider Emergency Medicine; PCP Nurse Practitioner Family
DX: J18.9 Pneumonia, unspecified organism (principal); R50.9 Fever, unspecified
CPT/HCPCS: 80053; 84145; 85652; 87040; 87637; 87798; 96365; 96375; 99284; 70450; 71046; 81003; 85025; 86140; 86618; 99283; J0131; J0456; J0696; J1100; J3475